=== PATIENT | male | born 1950 | race Two or more races ===

== ENCOUNTER 2021-08-08 11:07 | Outpatient (CLI) | payer MEDICARE | END 2021-08-08 23:59 | disposition home or self-care (01) | LOC: RAD 11:07 | DX: Z01.810 Encounter for preprocedural cardiovascular examination (principal); I44.7 Left bundle-branch block, unspecified | CPT/HCPCS: 93005 ==

== ENCOUNTER 2022-06-05 12:05 | Outpatient (CLI) | payer MEDICARE | END 2022-06-05 23:59 | disposition home or self-care (01) | LOC: RAD 12:05 | PROVIDERS: ATTEND Nurse Practitioner Primary Care | DX: Z01.810 Encounter for preprocedural cardiovascular examination (principal); I44.7 Left bundle-branch block, unspecified | CPT/HCPCS: 93005 ==